=== PATIENT | female | born 1995 | race Caucasian/White ===

== ENCOUNTER 2022-11-24 10:18 | Emergency (ER) | payer SELFPAY ==
[~2022-11-24] VITALS: Ht 167.6 cm; Wt 45.5 kg
[2022-11-24] MEDS ORDERED: FLEXERIL 1010 MG/TAB PO (11:07)
[2022-11-24 11:35] VITALS: BP 101/68; PULSE 63; TEMP 98.1
== END 2022-11-24 11:36 | disposition home or self-care (01) ==
LOC: COL.ER 10:18
DX: M54.50 Low back pain, unspecified (principal); Z28.310 Unvaccinated for COVID-19